=== PATIENT | male | born 2000 | race Caucasian/White ===

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

== ENCOUNTER 2023-07-22 15:03 | Emergency (ER) | payer OTHER ==
[~2023-07-22] VITALS: Ht 160 cm; Wt 65.9 kg
[2023-07-22 19:25] VITALS: BP 138/82; TEMP 98.2; O2SAT 99
== END 2023-07-22 19:24 | disposition home or self-care (01) ==
LOC: M ED 15:03
DX: R11.10 Vomiting, unspecified (principal); F12.10 Cannabis abuse, uncomplicated